=== PATIENT | female | born 1960 | race Caucasian/White ===

== ENCOUNTER 2017-08-22 11:27 | Emergency (ER) | payer OTHER ==
[~2017-08-22] VITALS: Ht 167.6 cm; Wt 74.8 kg
[~2017-08-22 11:27] MED LIST: CORTEF5 MG PO; KEFLEX500 M1 PO
[2017-08-22 11:30] VITALS: BP 124/79
--- NOTE | 2017-08-22 12:20 | ED UPPER/LOWER EXTREMITY COMPL ---
History of Present Illness General Chief Complaint: General Adult Stated Complaint: WANTS PICC LINE REMOVED Source: patient Exam Limitations: no limitations Vital Signs & Intake/Output Vital Signs & Intake/Output Vital Signs Date Time Temp Pulse Resp B/P B/P Pulse O2 O2 Flow FiO2 Mean Ox Delivery Rate 08/22 1130 98.6 98 18 124/79 98 Room Air Allergies Coded Allergies: MDX - Clindamycin (From CLINDACIN ETZ) (Intermediate, COLITIS 11/15/13) MDX - Gluten (GLUTEN) (Intermediate, CRAMPING, 11/15/13) MDX - Penicillin (PENICILLIN) (Intermediate, RASH 11/15/13) Reconcile Medications Cephalexin (Keflex) 500 MG CAPSULE 2 CAP PO BID SKIN INFECTION Hydrocortisone (Cortef) 5 MG TAB 3 TAB PO DAILY LOW CORTESOL (Reported) Triage Note: 57 YO FEMALE TO ER FOR PICC LINE REMOVAL FROM [facility]. PT WAS BEING TREATED FOR LYME. Triage Nurses Notes Reviewed? yes HPI: Patient presents with a prescription from her primary care physician for PICC line removal. The patient has been treated for Lyme disease over the past 2 months but no longer requires antibiotic treatment. She is traveling currently and attempted to have the PICC line removed yesterday at an home care physical therapist facility. She will have limited access to medical care given her travels. Past History Travel History Traveled to [facility] past 21 day No Medical History Any Pertinent Medical History? see below for history Neurological: NONE EENT: NONE Cardiovascular: NONE Respiratory: NONE Gastrointestinal: NONE Hepatic: NONE Renal: NONE Musculoskeletal: LYME Psychiatric: NONE Endocrine: NONE Blood Disorders: NONE Surgical History Surgical History: non-contributory Psychosocial History What is your primary language [place] Citizen Tobacco Use: Never used Family History Hx Contributory? No Review of Systems Review of Systems Constitutional: Reports: no symptoms. EENTM: Reports: no symptoms. Respiratory: Reports: no symptoms. Cardiovascular: Reports: no symptoms. Gastrointestinal/Abdominal: Reports: no symptoms. Genitourinary: Reports: no symptoms. Musculoskeletal: Reports: no symptoms. Skin: Reports: no symptoms. Neurological/Psychological: Reports: no symptoms. Hematologic/Endocrine: Reports: see HPI. Immunological: Reports: no symptoms. All Other Systems: Reviewed and Negative Physical Exam Physical Exam General Appearance: SEE BELOW Comments: Gen.: Well-nourished, well-developed, no acute respiratory distress. Head: Normocephalic, atraumatic. Eyes: Normal inspection bilaterally Ears: Normal inspection bilaterally Nose: Normal inspection Throat/mouth : Moist mucosa Neck: Supple, full range of motion, no goiter Heart: Regular rate and rhythm Lungs: Quiet respirations Back: Normal range of motion Extremities: Left upper extremity: PICC line in place with no apparent signs of infection. Neurologic: Cranial nerves grossly intact, speech is clear Skin: warm and dry Psychiatric: Calm, cooperative, no apparent delusions or hallucinations Progress Differential Diagnosis: cellulitis, INFECTED picc LINE, DISPLACED pic LINE Plan of Care: Orders Procedure Date/time Status Alternative Nursing Therapy 08/22 1224 Active Departure Departure Disposition: HOME OR SELF CARE Condition: Stable Clinical Impression Primary Impression: PIC line (peripherally inserted central catheter) removal Secondary Impressions: History of Lyme disease Referrals: Luis Daniel Matamoros OD (PCP/Family) Additional Instructions: Daily dressing changes until the PICC line site heals. Follow-up with your primary care physician this week for reevaluation. Return if any concerns or sudden worsening. Thank you for choosing the [facility] for your care. It was a pleasure to serve you today. Colten Guillen M.D. [facility] Departure Forms: Customer Survey General Discharge Information
== END 2017-08-22 12:33 ==
LOC: ERH 11:27
DX: Z43.8 Encounter for attention to other artificial openings (principal)